=== PATIENT | female | born 1995 | race Caucasian/White ===

== ENCOUNTER 2023-10-17 20:46 | Emergency (ER) | payer BC, SELFPAY ==
--- NOTE | ~2023-10-17 | CT_ITS ---
Noncontrast CT scan of the lumbar spine CLINICAL HISTORY: Back pain radiating to right leg TECHNIQUE: Axial noncontrast imaging of the lumbar spine was performed. Sagittal and coronal reformat oliver images were constructed. Dose reduction technique was used on this scan by utilizing automated ex posure control and iterative reconstruction technique. The dose-length product (DLP) was 461.39 mGy-c m. FINDINGS: There are bilateral L5 pars interarticularis defects, with 8 mm anterolisthesis of L5 over S1. No other fracture or subluxation identified. There is moderate degenerative disc narrowing at L5- S1. Remaining disc spaces are preserved. At L1-L2, L2-L3, L3-L4, L4-L5, there is no disc bulge or herniation. No spinal canal stenosis or neur al foraminal narrowing at these levels. At L5-S1, there is disc bulge/uncovering. No spinal canal stenosis. There is severe bilateral neural foraminal compromise. Paravertebral soft tissues are unremarkable. 6 mm nonobstructing left renal stone noted. Impression: Bilateral L5 pars interarticularis defects with 8 mm anterolisthesis of L5 over S1. Associated advanc ed bilateral neural foraminal narrowing at this level. 6 mm nonobstructing left renal stone. Reviewed, dictated and finalized at [facility]. Impression: Bilateral L5 pars interarticularis defects with 8 mm anterolisthesis of L5 over S1. Associated advanced bilateral neural foraminal narrowing at this level. 6 mm nonobstructing left renal stone.
[2023-10-17 21:10] VITALS: BP 136/84; PULSE 87; RESP 16; TEMP 36.8; O2SAT 100
--- NOTE | 2023-10-17 23:38 | ED.BACK ---
HPI - Back Pain/Injury General Chief Complaint: Back Pain/Injury Stated Complaint: BACK PAIN Time Seen by Provider: 10/17/23 22:21 Source: patient Mode of arrival: ambulatory Limitations: no limitations History of Present Illness HPI Narrative: This is a 28-year-old female that presents to the emergency department for low back pain. Ongoing over the last couple weeks. She saw her primary provider for this and was prescribed an anti-inflammatory and muscle relaxer with little relief. Reports the pain radiates down her right leg. No known injury or trauma. Pain is worse with movement and relieved with rest. Denies saddle anesthesia or bowel/bladder incontinence. Related Data Allergies Allergy/AdvReac Type Severity Reaction Status Date / Time No Known Allergies Allergy Verified 10/17/23 21:14 Review of Systems Review of Systems: CONSTITUTIONAL: Denies fever MUSCULOSKELETAL: Reports back pain, joint pain, and myalgia. NEUROLOGIC: Denies numbness, or weakness. All systems reviewed & are unremarkable except as noted in HPI and below PMFSH Past Medical History Medical History (Updated 10/18/23 @ 02:20 by Zoey Montemayor PA-C) No active medical problems Social History Social History (Updated 10/17/23 @ 23:40 by Zoey Montemayor PA-C) Substance use: never Exam Narrative: GENERAL: Well-appearing, well-nourished, and in no acute distress. HEAD: Normocephalic, atraumatic. EYES: EOMI. CHEST: Clear to auscultation. No respiratory distress. No wheezes rales or rhonchi HEART: Regular rate and rhythm. No murmur heard. Normal peripheral pulses. ABDOMEN: Soft, nontender, nondistended, normal active bowel sounds. EXTREMITIES: Normal range of motion. No edema. Strength equal in bilateral lower extremities (5/5) SKIN: Warm, dry, no rash. NEURO: No focal deficits. Alert and oriented x3. Normal gait PSYCH: Normal mood and affect Course Course Emergency Course: Patient and family updated on workup and agree with plan of care Vital Signs Vital signs: Vital Signs Temperature 98.3 F 10/17/23 21:10 Pulse Rate 87 10/17/23 21:10 Respiratory Rate 16 10/17/23 21:10 Blood Pressure 136/84 10/17/23 21:10 Pulse Oximetry 100 10/17/23 21:10 Oxygen Delivery Room Air 10/17/23 21:10 Temperature 98.3 F 10/17/23 21:10 Pulse Rate 81 10/18/23 02:55 Respiratory Rate 15 10/18/23 02:55 Blood Pressure 138/74 10/18/23 02:55 Pulse Oximetry 100 10/18/23 02:55 Oxygen Delivery Room Air 10/17/23 21:10 MDM - Back Pain/Injury MDM Narrative Medical decision making narrative: Patient presents to the emergency department for low back pain ongoing over the last couple of weeks. No recent injury or trauma. Patient is neurologically intact. CT lumbar spine shows anterior listhesis of L5 on S1 resulting in foraminal stenosis, right greater than left. Patient and family updated on workup and agree with plan of care. She is to follow up with her primary care provider. Was given information for Neurosurgery follow-up if needed Differential Diagnosis Differential diagnosis: Likely lumbar radiculopathy, sciatica, strain of lumbar region and other (Foraminal stenosis, anterolisthesis) Lab Data Attestation: I reviewed the patient's lab results. Labs: UCG Bedside Result Negative Reference Range: Negative Imaging Data Radiologist's impression: CT lumbar spine: Grade 1 anterior listhesis of L5 on S1 from bilateral L5 pars defect. This results in right worse than left severe bilateral foraminal stenosis Critical Care Time Critical Care Time Critical Care Time: No Discharge Plan Discharge Clinical Impression: Foraminal stenosis of lumbar region Patient Disposition: Home, Self-Care Condition: Stable Instructions: Lumbar Spinal Stenosis (ED) Additional Instructions: Return to the ER if you experience weakness,
[2023-10-17] MEDS: diazePAM INJ (*CRX) 10 MG/2 ML SYRINGE 5 MG IM (23:51)
[2023-10-17] MEDS: ACETAMINOPHEN 500 MG TABLET 1000 MG PO (23:52)
[2023-10-18 02:55] VITALS: BP 138/74; PULSE 81; RESP 15; O2SAT 100
== END 2023-10-18 02:56 | disposition home or self-care (01) ==
PROVIDERS: Emergency Provider Physician Assistant
DX: M48.061 Spinal stenosis, lumbar region without neurogenic claudication (principal)
CPT/HCPCS: 72131; 81025; 96372; 99284; A9270; J3360